=== PATIENT | female | born 1970 | race Caucasian/White ===

== ENCOUNTER 2019-01-14 06:20 | Day surgery (SDC) | payer BC ==
[2019-01-11 10:40] LABS: Urine Appearance CLOUDY; Urine Bilirubin NEGATIVE (NEG); Urine Blood NEGATIVE (NEG); Urine Color YELLOW; Urine Glucose NEGATIVE (NEG); Urine Protein NEGATIVE (NEG); Urine pH 7.5 (5.0-7.0)
[2019-01-11 10:41] LABS: Absolute Lymphocytes (CBC) 1.6 K/uL (0.7-4.9); Basophils % 0.6 % (0-1.3); Hematocrit 39.4 % (36.0-45.0); Lymphocytes % 20.9 % (15.3-44.8); MPV 7.7 fL (7.6-11.3); RBC Red Blood Cell Count 4.85 M/uL (3.86-4.86)
[2019-01-11 10:49] LABS: Urine Microscopic Reflex ORDER UMIC
[2019-01-11 10:50] LABS: Urine Bacteria <20 /HPF (<20); Urine RBC NONE SEEN /HPF (NONE SEEN)
[2019-01-11 10:51] LABS: Urine Culture Reflex Order NOT NEEDED
[2019-01-14] MEDS ORDERED: SCOPOLAMINE HYDROBROMIDE PATCH TD ONE (06:53)
[2019-01-14] MEDS ORDERED: Ringers Lactate 1,000 ML IV ONE ×2 (06:53→11:16)
[2019-01-14 06:59] LABS: Specific Gravity 1.025 (1.005-1.030)
[2019-01-14] MEDS ORDERED: dexAMETHasone 10 MG/ML VIAL ONE (07:18)
[2019-01-14] MEDS ORDERED: ROCURONIUM 50 MG/5 ML VIAL IV ONE (07:18)
[2019-01-14] MEDS ORDERED: PROPOFOL 200 MG/20 ML VIAL IV ONE ×2 (07:18→07:54)
[2019-01-14] MEDS ORDERED: LIDOCAINE 2% MPF 5 ML VIAL ONE (07:19)
[2019-01-14] MEDS ORDERED: FENTANYL CITR 250 MCG/5 ML ONE (07:19)
[2019-01-14] MEDS ORDERED: NEOSTIGMINE 1 MG/ML -10 ML VIAL ONE (07:20)
[2019-01-14] MEDS ORDERED: ONDANSETRON 4 MG/2 ML VIAL ONE ×2 (07:20→10:51)
[2019-01-14] MEDS ORDERED: MIDAZOLAM HCL 2 MG/2 ML INJ ONE (07:20)
[2019-01-14] MEDS: NA CHLORIDE 0.9% 1,000 ML ONE ×2 (07:24→07:48)
[2019-01-14] MEDS: CEFAZOLIN/SWI 2gm 2 GM/20 ML SYR ONE ×2 (07:25→07:48)
[2019-01-14] MEDS: Ringers Lactate 1,000 ML IV ONE ×3 (09:29→10:37)
[2019-01-14] MEDS ORDERED: FENTANYL CITR 100 MCG/2 ML ONE (10:02)
[2019-01-14] MEDS ORDERED: MORPHINE 10 MG/ML VIAL ONE (10:02)
[2019-01-14] MEDS ORDERED: ALBUMIN HUM 5% 250 ML IV ONE (10:12)
[2019-01-14] MEDS ORDERED: GLYCOPYRROLATE 0.2 MG/ML SYR ONE (10:50)
[2019-01-14] MEDS ORDERED: KETOROLAC 30 MG/ML INJ ONE (10:51)
[2019-01-14] MEDS ORDERED: CEFAZOLIN SODIUM 1 GM/VIAL ONE (11:10)
[2019-01-14] MEDS: MEPERIDINE HCL 50 MG/ML AMP ONE ×4 (13:00→13:38)
[2019-01-14] MEDS: MORPHINE 4 MG/ML SYR ONE ×4 (13:47→14:10)
[2019-01-14] MEDS ORDERED: HYDROCODONE/APAP 5/325 MG TAB PO ONE (14:50)
[2019-01-14] MEDS ORDERED: HYDROCODONE/APAP 5/325 MG TAB ONE (15:01)
== END 2019-01-14 15:40 | disposition home or self-care (01) ==
LOC: OR 06:20
PROVIDERS: ATTEND Obstetrics & Gynecology
PROC: 0UT24ZZ Resection of Bilateral Ovaries, Percutaneous Endoscopic Approach (ICD-10-PCS; 2019-01-14)
PROC: 0UT74ZZ Resection of Bilateral Fallopian Tubes, Percutaneous Endoscopic Approach (ICD-10-PCS; 2019-01-14)
PROC: 0DNW4ZZ Release Peritoneum, Percutaneous Endoscopic Approach (ICD-10-PCS; 2019-01-14)
PROC: 0UT94ZZ Resection of Uterus, Percutaneous Endoscopic Approach (ICD-10-PCS; principal; 2019-01-14 07:30)
DX: N92.1 Excessive and frequent menstruation with irregular cycle (principal); D25.9 Leiomyoma of uterus, unspecified; N83.8 Other noninflammatory disorders of ovary, fallopian tube and broad ligament; N70.11 Chronic salpingitis; N83.02 Follicular cyst of left ovary; N83.01 Follicular cyst of right ovary; N94.6 Dysmenorrhea, unspecified; K66.0 Peritoneal adhesions (postprocedural) (postinfection); E03.9 Hypothyroidism, unspecified; F41.9 Anxiety disorder, unspecified; F33.2 Major depressive disorder, recurrent severe without psychotic features; E66.01 Morbid (severe) obesity due to excess calories; Z68.41 Body mass index [BMI] 40.0-44.9, adult; Z79.899 Other long term (current) drug therapy; Z80.3 Family history of malignant neoplasm of breast; Z83.3 Family history of diabetes mellitus; Z82.49 Family history of ischemic heart disease and other diseases of the circulatory system; Z82.3 Family history of stroke
CPT/HCPCS: 36415; 81003; 81015; 81025; 85025; 86850; 86900; 86901; 88108; 88305; 88307; J0690; J1100; J2175; J2250; J2405; J2704; J2710; J3010; J7030; P9045